=== PATIENT | female | born 1955 | race Caucasian/White ===

== ENCOUNTER 2016-10-25 09:27 | Emergency (ER) | payer BC ==
--- NOTE | 2016-10-25 09:51 | ER Document Report ---
ED General - General Stated Complaint: KNEE PAIN,FALL Time Seen by Provider: 10/25/16 09:33 Mode of Arrival: Medic Information source: Patient Notes: 61-year-old female presents with fall with complaints of right knee pain. Deformity noted by EMS Given fentanyl just prior to arrival - HPI Onset: Just prior to arrival Onset/Duration: Sudden Quality of pain: Sharp Severity: Mild Pain Level: 1 Associated symptoms: Body/muscle aches Exacerbated by: Denies Relieved by: Denies Similar symptoms previously: No Recently seen / treated by doctor: No - Related Data Allergies/Adverse Reactions: Penicillins Allergy (Verified 10/25/16 10:08) prochlorperazine [From Compazine] Allergy (Verified 10/25/16 10:08) Past Medical History - Social History Smoking Status: Never Smoker Cigarette use (# per day): No Chew tobacco use (# tins/day): No Smoking Education Provided: No Family History: Reviewed & Not Pertinent Review of Systems - Review of Systems Notes: REVIEW OF SYSTEMS: CONSTITUTIONAL : Denies fever, chills, or sweats. Denies recent illness. EENT: Denies eye, ear, throat, or mouth pain or symptoms. Denies nasal or sinus congestion or discharge. Denies throat, tongue, or mouth swelling or difficulty swallowing. CARDIOVASCULAR: Denies RESPIRATORY: Denies cough, cold, or chest congestion. Denies shortness of breath, difficulty breathing, or wheezing. GASTROINTESTINAL: Denies abdominal pain or distention. Denies nausea, vomiting , or diarrhea. Denies blood in vomitus, stools, or per rectum. Denies black, tarry stools. Denies constipation. GENITOURINARY: Denies difficulty urinating, painful urination, burning, frequency, blood in urine, or discharge. FEMALE GENITOURINARY: Denies vaginal bleeding, heavy or abnormal periods, irregular periods. Denies vaginal discharge or odor. MUSCULOSKELETAL: Admits to right knee pain SKIN: Denies rash, lesions or sores. HEMATOLOGIC : Denies easy bruising or bleeding. LYMPHATIC: Denies swollen, enlarged glands. NEUROLOGICAL: Denies confusion or altered mental status. Denies passing out or loss of consciousness. Denies dizziness or lightheadedness. Denies headache. Denies weakness or paralysis or loss of use of either side. Denies problems with gait or speech. Denies sensory loss, numbness, or tingling. Denies seizures. PSYCHIATRIC: Denies anxiety or stress. Denies depression, suicidal ideation, or homicidal ideation. ALL OTHER SYSTEMS REVIEWED AND NEGATIVE. PHYSICAL EXAMINATION: GENERAL: Well-appearing, well-nourished and in no acute distress. HEAD: Atraumatic, normocephalic. EYES: Pupils equal round and reactive to light, extraocular movements intact, conjunctiva are normal. ENT: Nares patent, oropharynx clear without exudates. Moist mucous membranes. NECK: Normal range of motion, supple without lymphadenopathy LUNGS: Breath sounds clear to auscultation bilaterally and equal. No wheezes rales or rhonchi. HEART: Regular rate and rhythm without murmurs ABDOMEN: Soft, nontender, nondistended abdomen. No guarding, no rebound. No masses appreciated. Female : deferred Musculoskeletal: Better range of motion of the right knee, pulses are intact at the popliteal, DP PT NEUROLOGICAL: Cranial nerves grossly intact. Normal speech, normal gait. Normal sensory, motor exams PSYCH: Normal mood, normal affect. SKIN: Warm, Dry, normal turgor, no rashes or lesions noted. Dictation was performed using [employer] voice recognition software Physical Exam - Vital signs Vitals: Temp Pulse BP Pulse Ox 97.8 F 56 L 148/81 H 93 10/25/16 09:35 10/25/16 09:35 10/25/16 09:35 10/25/16 09:35 Course - Re-evaluation Re-evalutation: 10/25/16 09:50 Presents with right knee pain secondary to mechanical fall x-ray pending 10/25/16 10:38 I spoke with patient's orthopedic physician Dr. Bingham, he requests patient be placed in a knee immobilizer and followed up in office 10/25/16 10:50 After performing a Medical Screening Examination, I estimate there is LOW risk for INTRACRANIAL HEMORRHAGE, UNSTABLE SPINE FRACTURE, CENTRAL CORD SYNDROME, CAUDA EQUINA, THORACIC AORTIC DISSECTION, PNEUMOTHORAX, PERFORATED BOWEL, RUPTURED ABDOMINAL AORTIC ANEURYSM, ACUTE TENDON RUPTURE, COMPARTMENT SYNDROME, or OPEN FRACTURE, thus I consider the discharge disposition reasonable. Also, there is no evidence or peritonitis, sepsis, or toxicity. I have reevaluated this patient multiple times and no significant life threatening changes are noted. The patient and I have discussed the diagnosis and risks, and we agree with discharging home to follow-up with their primary doctor with the understanding that symptoms and presentations can change. We also discussed returning to the Emergency Department immediately if new or worsening symptoms occur. We have discussed the symptoms which are most concerning (e.g., bloody stool, fever, changing or worsening pain, vomiting) that necessitate immediate return. - Vital Signs Vital signs: Temp Pulse Resp BP Pulse Ox 97.8 F 56 L 148/81 H 93 10/25/16 09:35 10/25/16 09:35 10/25/16 09:35 10/25/16 09:35 - Diagnostic Test Radiology reviewed: Image reviewed, Reports reviewed Discharge - Discharge Clinical Impression: Knee fracture Closed fibular fracture Qualifiers: Encounter type: initial encounter Fibula location: proximal Fracture morphology : unspecified fracture morphology Laterality: right Qualified Code(s): S82.831A - Other fracture of upper and lower end of right fibula, initial encounter for closed fracture Tibial plateau fracture Qualifiers: Encounter type: initial encounter Fracture type: closed Laterality: right Qualified Code(s): S82.141A - Displaced bicondylar fracture of right tibia, initial encounter for closed fracture Condition: Stable Disposition: HOME, SELF-CARE Instructions: Knee Immobilizing Splint ([facility]) Prescriptions: Hydrocodone/Acetaminophen [[place] 5-325 mg Tablet] 1 tab PO Q6 #30 tablet Ondansetron HCl [Zofran 4 mg Tablet] 1 - 2 tab PO Q4H PRN #20 tablet PRN Reason: Referrals: TONI BINGHAM MD [ACTIVE STAFF] - Follow up tomorrow
--- NOTE | 2016-10-25 10:26 | RADIOLOGY REPORT (SQ) ---
EXAM DESCRIPTION: KNEE RIGHT 4 VIEWS COMPLETED DATE/TIME: 10/25/2016 9:55 am REASON FOR STUDY: injury COMPARISON: None. NUMBER OF VIEWS: Four views. TECHNIQUE: AP, lateral, and both oblique radiographic images acquired of the right knee. LIMITATIONS: None. FINDINGS: MINERALIZATION: Normal. BONES: There appears to be a mildly displaced fracture through the posterior aspect of the tibial reuben teau with extension into the distal joint. With also comminuted fracture involving the proximal port ion of the fibula through the head. Minimal displacement of the fracture fragments in relation to ea ch other. JOINT: Small lipohaemarthrosis. SOFT TISSUES: There is soft tissue swelling about the knee. No radiopaque foreign body. OTHER: No other significant finding. IMPRESSION: Comminuted fractures involving the right fibular head and the posterior aspect of the ti bial plateau with extension into the joint space are noted. There appears to be a small lipohaemarth rosis. Soft tissue swelling about the knee. TECHNICAL DOCUMENTATION: JOB ID: [id number] [employer]- All Rights Reserved
[2016-10-25] MEDS ORDERED: HYDROMORPHONE HCL INJ/PF 2 MG/ML AMPULE IM ONE (10:52)
[2016-10-25] MEDS ORDERED: ONDANSETRON HCL 8 MG TABLET PO ONE (10:52)
[2016-10-25 11:32] VITALS: BP 141/74
== END 2016-10-25 11:50 | disposition home or self-care (01) ==
LOC: ER 09:27
DX: S82.141A Displaced bicondylar fracture of right tibia, initial encounter for closed fracture (principal); S82.831A Other fracture of upper and lower end of right fibula, initial encounter for closed fracture; W10.9XXA Fall (on) (from) unspecified stairs and steps, initial encounter; M25.561 Pain in right knee; Z88.0 Allergy status to penicillin; Z88.8 Allergy status to other drugs, medicaments and biological substances
CPT/HCPCS: 99283; 96372; 73564; L1830; J1170; S0119

== ENCOUNTER 2016-10-28 16:25 | Emergency (ER) | payer BC ==
--- NOTE | 2016-10-28 16:44 | ER Document Report ---
ED Extremity Problem, Lower - General Chief Complaint: Leg Pain Stated Complaint: LEG RECHECK Time Seen by Provider: 10/28/16 16:31 Notes: Patient is a 61-year-old female, past medical history right proximal tib-fib fracture 3 days ago after a fall, presents with worsening swelling of her right calf and mccray since this morning. She is wearing a knee immobilizer. She is concerned that she is having a blood clot. She is scheduled for surgery by Dr. Bingham and 5 days. She denies numbness, tingling, new injury, open wounds or left leg swelling. TRAVEL OUTSIDE OF THE [place] IN LAST 30 DAYS: No - Related Data Allergies/Adverse Reactions: Penicillins Allergy (Verified 10/28/16 16:30) prochlorperazine [From Compazine] Allergy (Verified 10/28/16 16:30) Past Medical History - General Information source: Patient - Social History Smoking Status: Never Smoker Family History: Reviewed & Not Pertinent Patient has suicidal ideation: No Patient has homicidal ideation: No - Past Medical History Cardiac Medical History: Reports: Hx Hypertension Neurological Medical History: Reports: Hx Seizures Renal/ Medical History: Denies: Hx Peritoneal Dialysis Past Surgical History: Reports: Hx Orthopedic Surgery - Left leg, Hx Tubal Ligation Review of Systems - Review of Systems Notes: REVIEW OF SYSTEMS: CONSTITUTIONAL: -fevers, -chills EENT: -eye pain, -difficulty swallowing, -nasal congestion CARDIOVASCULAR:-chest pain, -syncope. RESPIRATORY: -cough, -SOB GASTROINTESTINAL: -abdominal pain, - nausea, -vomiting, -diarrhea GENITOURINARY: -dysuria, -hematuria MUSCULOSKELETAL: +right calf and mccray swelling, -back pain, -neck pain SKIN: -rash or skin lesions. HEMATOLOGIC: -easy bruising or bleeding. LYMPHATIC: -swollen, enlarged glands. NEUROLOGICAL: -altered mental status or loss of consciousness, -headache, - neurologic symptoms PSYCHIATRIC: -anxiety, -depression. ALL OTHER SYSTEMS REVIEWED AND NEGATIVE. Physical Exam - Vital signs Vitals: Temp Pulse Resp BP Pulse Ox 98.7 F 76 18 166/99 H 96 10/28/16 16:29 10/28/16 16:29 10/28/16 16:29 10/28/16 16:29 10/28/16 16:29 - Notes Notes: PHYSICAL EXAMINATION: GENERAL: Well-appearing, well-nourished and in no acute distress. HEAD: Atraumatic, normocephalic. EYES: Pupils equal round and reactive to light, extraocular movements intact, sclera anicteric, conjunctiva are normal. ENT: nares patent, oropharynx clear without exudates. Moist mucous membranes. NECK: Normal range of motion, supple without lymphadenopathy LUNGS: Breath sounds clear to auscultation bilaterally and equal. No wheezes rales or rhonchi. HEART: Regular rate and rhythm without murmurs ABDOMEN: Soft, nontender, normoactive bowel sounds. No guarding, no rebound. No masses appreciated. EXTREMITIES: Swelling and tenderness of right anterior mccray and calf, strong distal pulses, brisk capillary refill, N/V intact distally NEUROLOGICAL: Cranial nerves grossly intact. Normal speech, normal gait. Normal sensory and motor exams. PSYCH: Normal mood, normal affect. SKIN: Warm, Dry, normal turgor, no rashes or lesions noted. Course - Re-evaluation Re-evalutation: Symptoms are not consistent with compartment syndrome at this time. Ultrasound of her right lower extremity does not reveal any DVTs. Patient scheduled for surgery in [address] Bingham. Instructed her to continue to wear knee immobilizer and take Motrin and oxycodone as needed. Given strict return precautions and she understands. - Vital Signs Vital signs: Temp Pulse Resp BP Pulse Ox 98.7 F 76 18 166/99 H 96 10/28/16 16:29 10/28/16 16:29 10/28/16 16:29 10/28/16 16:29 10/28/16 16:29 - Diagnostic Test Radiology reviewed: Image reviewed, Reports reviewed Radiology results interpreted by me: DVT US: No DVT or SVT in RLE. Discharge - Discharge Clinical Impression: Traumatic ecchymosis of right lower leg Qualifiers: Encounter type: initial encounter Qualified Code(s): S80.11XA - Contusion of right lower leg, initial encounter Condition: Stable Disposition: HOME, SELF-CARE Additional Instructions: There is no evidence of a blood clot in your leg at this time. Follow-up with your surgeon. Take anti-inflammatories and oxycodone for severe pain. Referrals: KAREN,NO [Primary Care Provider] - Follow up as needed TONI BINGHAM MD [ACTIVE STAFF] - Follow up as needed
--- NOTE | 2016-10-28 19:19 | RADIOLOGY REPORT (SQ) ---
EXAM DESCRIPTION: VENOUS UNILATERAL LOWER COMPLETED DATE/TIME: 10/28/2016 6:54 pm REASON FOR STUDY: worsening RLE swelling s/p fx COMPARISON: None. TECHNIQUE: Dynamic and static gibson scale and color images acquired of the right leg venous system. S elected spectral images acquired with additional compression and augmentation maneuvers. The contrala teral common femoral vein and saphenofemoral junction were also imaged. Images stored on PACS. LIMITATIONS: None. FINDINGS: COMMON FEMORAL: Normal phasicity, compression and augmentation. No visualized echogenic ma terial on gibson scale. No defects on color images. FEMORAL: Normal compression and augmentation. No visualized echogenic material on gibson scale. No defe cts on color images. POPLITEAL: Normal compression, augmentation. No visualized echogenic material on gibson scale. No defec ts on color images. CALF VESSELS: Normal compression, augmentation. No visualized echogenic material on gibson scale. No de fects on color images. GSV and SSV: Normal compression, augmentation. No visualized echogenic material on gibson scale. No def ects on color images. ANY DEEP VENOUS INSUFFICIENCY: Not evaluated. ANY EVIDENCE OF POPLITEAL CYST: No. OTHER: No other significant finding. CONTRALATERAL COMMON FEMORAL VEIN AND SAPHENOFEMORAL JUNCTION: Normal phasicity, compression and augmentation. No visualized echogenic material on gibson scale. No de fects on color images. IMPRESSION: NO EVIDENCE DVT OR SVT IN THE RIGHT LEG. TECHNICAL DOCUMENTATION: JOB ID: [id number] [employer]- All Rights Reserved
[2016-10-28 19:44] VITALS: BP 146/75
== END 2016-10-28 19:45 | disposition home or self-care (01) ==
LOC: ER 16:25
DX: S82.201A Unspecified fracture of shaft of right tibia, initial encounter for closed fracture (principal); S82.401A Unspecified fracture of shaft of right fibula, initial encounter for closed fracture; W19.XXXA Unspecified fall, initial encounter; I10 Essential (primary) hypertension; Z88.0 Allergy status to penicillin; Z88.8 Allergy status to other drugs, medicaments and biological substances
CPT/HCPCS: 93971; 99283

== ENCOUNTER 2016-11-02 05:25 | Day surgery (SDC) | payer BC ==
--- NOTE | 2016-10-31 13:25 | RADIOLOGY REPORT (SQ) ---
EXAM DESCRIPTION: CHEST PA/LATERAL COMPLETED DATE/TIME: 10/31/2016 1:18 pm REASON FOR STUDY: PRE-OP COMPARISON: None. EXAM PARAMETERS: NUMBER OF VIEWS: two views TECHNIQUE: Digital Frontal and Lateral radiographic views of the chest acquired. RADIATION DOSE: NA LIMITATIONS: none FINDINGS: LUNGS AND PLEURA: No opacities, masses or pneumothorax. No pleural effusion. MEDIASTINUM AND HILAR STRUCTURES: No masses or contour abnormalities. HEART AND VASCULAR STRUCTURES: Heart normal size. No evidence for failure. BONES: No acute findings. HARDWARE: Surgical clips at the GE junction. OTHER: No other significant finding. IMPRESSION: NO SIGNIFICANT RADIOGRAPHIC FINDING IN THE CHEST. TECHNICAL DOCUMENTATION: JOB ID: [id number] [employer]- All Rights Reserved
[2016-10-31 14:14] LABS: ABSOLUTE BASOPHILS # (AUTO) 0.1 10^3/uL (0.0-0.2); ABSOLUTE EOSINOPHILS # (AUTO) 0.3 10^3/uL (0.0-0.6); ABSOLUTE LYMPHOCYTES (AUTO) 2.8 10^3/uL (0.5-4.7); ABSOLUTE MONOCYTES (AUTO) 0.8 10^3/uL (0.1-1.4); ABSOLUTE NEUT (AUTO) 3.8 10^3/uL (1.7-8.2); BASOPHILS % (AUTO) 0.7 % (0-2); EOSINOPHILS % (AUTO) 3.5 % (0-6); HEMATOCRIT 40.3 % (36.0-47.0); HEMOGLOBIN 13.1 g/dL (12.0-15.5); LYMPHOCYTES % (AUTO) 36.3 % (13-45); MEAN CORPUSCULAR HEMOGLOBIN 29.9 pg (27.0-33.4); MEAN CORPUSCULAR HGB CONC 32.4 g/dL (32.0-36.0); MEAN CORPUSCULAR VOLUME 92 fl (80-97); MONOCYTES % (AUTO) 10.1 % (3-13); RED BLOOD COUNT 4.37 10^6/uL (3.72-5.28); RED CELL DISTRIBUTION WIDTH 13.2 % (11.5-14.0); SEGMENTED NEUTROPHILS % (AUTO) 49.4 % (42-78); WHITE BLOOD COUNT 7.7 10^3/uL (4.0-10.5)
[2016-10-31 14:33] LABS: ANION GAP 13 (5-19); BLOOD UREA NITROGEN 20 mg/dL (7-20); CALCIUM 9.3 mg/dL (8.4-10.2); CARBON DIOXIDE 25 mmol/L (22-30); CHLORIDE 104 mmol/L (98-107); CREATININE RESULT 0.72 mg/dL (0.52-1.25); GLUCOSE 143 mg/dL (75-110); POTASSIUM 4.2 mmol/L (3.6-5.0); SODIUM 141.9 mmol/L (137-145)
--- NOTE | 2016-10-31 20:32 | EKG REPORT ---
SEVERITY:- ABNORMAL ECG - SINUS RHYTHM PROBABLE LEFT VENTRICULAR HYPERTROPHY : Confirmed by: Douglas Rabago MD 31-Oct-2016 20:32:12
[~2016-11-02 05:25] MED LIST: CEFAZOLIN INJ 1 GM VIAL INJ PRN; CLINDAMYCIN 600 MG/D5W RTU 600 MG/50 ML RTUPB IV PRN; LACTATED RINGERS 1000 ML IV PRN; LIDOCAINE 0.5% INJ-PF (5 MG/ML) 50 ML SDV SUBCUT PRN
[2016-11-02 06:01] LABS: APPEARANCE,URINE CLEAR; BILIRUBIN,URINE NEGATIVE (NEGATIVE); GLUCOSE, URINE NEGATIVE (NEGATIVE); KETONES,URINE NEGATIVE (NEGATIVE); LEUKOCYTE ESTERASE,URINE NEGATIVE (NEGATIVE); NITRITE,URINE NEGATIVE (NEGATIVE); PROTEIN,URINE NEGATIVE (NEGATIVE); URINE SPECIFIC GRAVITY 1.029; UROBILINOGEN,URINE NEGATIVE mg/dL (<2.0)
[2016-11-02] MEDS ORDERED: FENTANYL CITRATE INJ/PF 250 MCG/5 ML AMPULE ONE (06:31)
[2016-11-02] MEDS ORDERED: FENTANYL CITRATE INJ/PF 100 MCG/2 ML AMPUL ONE ×2 (06:32→09:04)
[2016-11-02] MEDS ORDERED: DEXMEDETOMIDINE INJ 80 MCG/20 ML VIAL IV ONE (06:32)
[2016-11-02] MEDS ORDERED: MIDAZOLAM 2 MG/2 ML INJ ONE (06:32)
[2016-11-02] MEDS ORDERED: PROPOFOL INJ 200 MG/20 ML VIAL IV ONE (06:32)
[2016-11-02] MEDS ORDERED: EPHEDRINE SULFATE INJ 50 MG/1 ML AMPULE ONE (06:32)
[2016-11-02] MEDS ORDERED: ACETAMINOPHEN 100 ML IV ONE (06:32)
[2016-11-02] MEDS ORDERED: MORPHINE SULFATE 10 MG/ML INJ ONE (06:33)
[2016-11-02] MEDS ORDERED: SCOPOLAMINE HYDROBROMIDE 1.5 MG PATCH.TD72 ONE (06:53)
[2016-11-02] MEDS ORDERED: DIPHENHYDRAMINE HCL 50 MG/ML VIAL ONE (06:57)
[2016-11-02] MEDS ORDERED: PROMETHAZINE HCL INJ 25 MG/1 ML VIAL IV PRN ×2 (07:43)
[2016-11-02] MEDS ORDERED: MEPERIDINE HCL/PF INJ 25 MG/1 ML DISP.SYRIN IV PRN (07:43)
[2016-11-02] MEDS ORDERED: MORPHINE SULFATE 10 MG/ML INJ IV PRN (07:43)
[2016-11-02] MEDS ORDERED: DIPHENHYDRAMINE HCL 50 MG/ML VIAL IV PRN (07:43)
[2016-11-02] MEDS ORDERED: OXYCODONE-ACETAMINOPHEN 5-325 MG TABLET PO PRN ×2 (07:43)
[2016-11-02] MEDS ORDERED: FENTANYL CITRATE INJ/PF 100 MCG/2 ML AMPUL IV PRN ×3 (07:43)
[2016-11-02] MEDS ORDERED: BUPIVACAINE HCL 0.5%-EPI 1:200000 INJ/PF 30 ML VIAL ONE (08:03)
--- NOTE | 2016-11-02 08:21 | Operative Report ---
Operative Report DATE OF SURGERY: 11/02/16 PREOPERATIVE DIAGNOSIS: Right lateral tibial plateau fracture OPERATION: Open reduction internal fixation right lateral tibial plateau fracture SURGEON: TONI BINGHAM ANESTHESIA: GA ESTIMATED BLOOD LOSS: 50 PROCEDURE: Patient supine on the operative table the right lower extremities prepped and draped in a sterile fashion. Limb was elevated for exsanguination. Tourniquet inflated 280 mmHg. A curvilinear incision was made beginning at the joint line posteriorly and extending anteriorly and distally along the tibial crest. Sharp dissection was carried incision down to the muscle fascia. The muscle fascia divided and the muscle elevated off the lateral tibial face. A elevator was inserted through the anterior cortical break and used to elevate the posterior aspect of the articular surface of the lateral compartment. Then a pelvic reduction forceps was placed across the proximal tibia and used to compress the fracture site. This elevates the lateral cortical rim to the appropriate height compared to the medial compartment. A 5 hole Regina titanium proximal tibial plate is applied to lateral surface and secured with 3 screws proximally and 3 screws distally. The fracture reduction in the hardware placement nursing access using fluoroscopy in 2 planes and felt to be adequate. At this point the tourniquet was deflated. Hemostasis obtained with electrocautery. The wound was irrigated and closed using of the Vicryl followed by najma. A sterile compressive dressing was applied and the patient 's return to the PACU in satisfactory condition.
[2016-11-02] MEDS ORDERED: RINGERS SOLUTION,LACTATED 1,000 ML IV PRN (08:47)
[2016-11-02] MEDS ORDERED: ONDANSETRON HCL INJ/PF 4 MG/2 ML SDV IV PRN (08:50)
--- NOTE | 2016-11-02 09:13 | RADIOLOGY REPORT (SQ) ---
EXAM DESCRIPTION: TIBIA FIBULA RIGHT; NO CHG FLUORO COMPLETED DATE/TIME: 11/02/2016 8:25 am REASON FOR STUDY: TIB PLATU FX S82.101A UNSP FRACTURE OF UPPER END OF RIGHT TIBIA, INIT FOR COMPARISON: 10/25/2016 right knee four views FLUOROSCOPY TIME: 0.2 minutes 2 digital C-arm images saved to PACS. TECHNIQUE: Intra-operative images acquired during surgical procedure to evaluate progress. NUMBER OF IMAGES: 2 digital C-arm images LIMITATIONS: None. FINDINGS: Post ORIF right tibial plateau fracture with fixation plate and multiple screws. Good ali gnment. Please see the operative report for further details IMPRESSION: Intra procedural imaging and fluoro COMMENT: Quality ID [id number]: Final reports for procedures using fluoroscopy that document radiation exp osure indices, or exposure time and number of fluorographic images (if radiation exposure indices are not available) Please consult full operative report of the attending physician for description of the procedure. TECHNICAL DOCUMENTATION: JOB ID: [id number] [employer]- All Rights Reserved
[2016-11-02] MEDS ORDERED: ONDANSETRON 4 MG TAB.RAPDIS PO PRN (10:36)
[2016-11-02] MEDS: MORPHINE SULFATE 10 MG/ML INJ IV PRN ×2 (10:52→18:22)
[2016-11-02] MEDS ORDERED: KETOROLAC TROMETHAMINE 60 MG/2 ML SDV ONE (11:05)
[2016-11-02] MEDS ORDERED: DEXAMETHASONE SOD PHOSPHATE INJ 4 MG/1 ML VIAL ONE (11:05)
[2016-11-02] MEDS ORDERED: NEOSTIGMINE METHYLSULFATE 10 MG/10 ML VIAL ONE (11:05)
[2016-11-02] MEDS ORDERED: ROCURONIUM BROMIDE INJ 50 MG/5 ML VIAL IV ONE (11:05)
[2016-11-02] MEDS ORDERED: ONDANSETRON HCL INJ/PF 4 MG/2 ML SDV ONE (11:05)
[2016-11-02] MEDS ORDERED: GLYCOPYRROLATE INJ 0.4 MG/2 ML VIAL ONE (11:05)
[2016-11-02] MEDS ORDERED: SUCCINYLCHOLINE CHLORIDE INJ 200 MG/10 ML VIAL ONE (11:05)
[2016-11-02] MEDS ORDERED: LIDOCAINE 2% INJ-PF (20 MG/ML) 10 ML AMPUL ONE (11:05)
[2016-11-02] MEDS ORDERED: METOCLOPRAMIDE HCL INJ/PF 10 MG/2 ML SDV ONE (11:05)
[2016-11-02] MEDS ORDERED: CLINDAMYCIN 600 MG/D5W RTU 600 MG/50 ML RTUPB IV ONE (12:00)
[2016-11-02] MEDS: HYDROCODONE/ACETAMINOPHEN 5-325 MG TABLET PO SCH ×2 (13:06→14:00)
[2016-11-02] MEDS: METOPROLOL TARTRATE 50 MG TABLET PO SCH (17:51)
[2016-11-02] MEDS: HYDROCODONE/ACETAMINOPHEN 5-325 MG TABLET PO PRN (21:06)
[2016-11-02] MEDS ORDERED: LEVETIRACETAM 500 MG TABLET PO SCH (22:00)
[2016-11-03] MEDS: OXYCODONE HCL IR 5 MG TABLET PO PRN ×2 (01:41→09:45)
[2016-11-03] MEDS: HYDROCODONE/ACETAMINOPHEN 5-325 MG TABLET PO PRN (05:42)
[2016-11-03 08:36] VITALS: BP 126/61
[2016-11-03] MEDS: METOPROLOL TARTRATE 50 MG TABLET PO SCH (09:29)
[2016-11-03] MEDS ORDERED: MELOXICAM 7.5 MG TABLET PO SCH (10:00)
[2016-11-03] MEDS ORDERED: AMLODIPINE BESYLATE 5 MG TABLET PO SCH (10:00)
[2016-11-03] MEDS ORDERED: BENAZEPRIL HCL 10 MG TABLET PO SCH (10:00)
== END 2016-11-03 10:50 | disposition home or self-care (01) ==
LOC: OROUT 05:25 → EDSTATUS 07:30 → 4S 10:17 → OROUT 11-03 10:50
PROVIDERS: ATTEND Orthopaedic Surgery
PROC: 0QSH04Z Reposition Left Tibia with Internal Fixation Device, Open Approach (ICD-10-PCS; principal; 2016-11-02 07:15)
DX: S82.141A Displaced bicondylar fracture of right tibia, initial encounter for closed fracture (principal); W19.XXXA Unspecified fall, initial encounter; I10 Essential (primary) hypertension; G40.909 Epilepsy, unspecified, not intractable, without status epilepticus; E66.3 Overweight; Z88.0 Allergy status to penicillin; Z88.8 Allergy status to other drugs, medicaments and biological substances; Z79.1 Long term (current) use of non-steroidal anti-inflammatories (NSAID); Z68.31 Body mass index [BMI] 31.0-31.9, adult
CPT/HCPCS: 93005; 36415; 85025; 80048; 81001; 71020; 73590; 93010; 97530; 97116; 97163; 27536; C1713 ×3; J2250; J3490 ×4; J1100; J1200; J1885; J3010 ×2; J2765; J2270; J0330; J2405; J2704; J0131; 01392

== ENCOUNTER → 2017-02-01 | Outpatient (CLI) | payer BC ==
--- NOTE | 2017-02-01 09:43 | WOMENS IMAGING REPORT ---
EXAM DESCRIPTION: BONE DENSITY HIP/SPINE COMPLETED DATE/TIME: 02/01/2017 8:23 am REASON FOR STUDY: PAIN IN R LEG; M79.604 M79.604 PAIN IN RIGHT LEG COMPARISON: None. TECHNIQUE: Dual-Energy X-ray Absorptiometry (DEXA) of the AP Spine and Hip. LIMITATIONS: None. FINDINGS: LUMBAR SPINE: The bone mineral density (BMD) measured from L1-L4 in the AP projection correlates with a T-score of -2.2, which is osteopenic as defined by the World Health Organization. HIP: The bone mineral density (BMD) measured in the left femoral neck at the hip correlates with a T-score of -2.6, which is osteoporotic as defined by the World Health Organization. IMPRESSION: 1. LUMBAR SPINE: Osteopenic 2. HIP: Osteoporotic COMMENT: The World Health Organization defines low BMD as follows: T-score: Normal: Greater than -1.0 Osteopenia: Between -1.0 and -2.5 Osteoporosis: Less than -2.5 without fractures Established osteoporosis: Less than -2.5 with fractures In general, you may wish to consider: Diagnosis Treatment Follow-up DEXA Normal BMD Prevention 2-3 years Osteopenia Prevention/Therapy 1-2 years Osteoporosis Therapy Yearly TECHNICAL DOCUMENTATION: JOB ID: [id number] [employer]- All Rights Reserved
== END ==
LOC: WI 07:57
PROVIDERS: ATTEND Orthopaedic Surgery
DX: M79.604 Pain in right leg (principal); M81.0 Age-related osteoporosis without current pathological fracture
CPT/HCPCS: 77080

== ENCOUNTER → 2017-12-19 | Outpatient (CLI) | payer BC ==
[2017-12-19 12:33] LABS: ABSOLUTE EOSINOPHILS # (AUTO) 0.2 10^3/uL (0.0-0.6); ABSOLUTE LYMPHOCYTES (AUTO) 2.8 10^3/uL (0.5-4.7); ABSOLUTE MONOCYTES (AUTO) 0.6 10^3/uL (0.1-1.4); ABSOLUTE NEUT (AUTO) 3.7 10^3/uL (1.7-8.2); BASOPHILS % (AUTO) 0.6 % (0-2); EOSINOPHILS % (AUTO) 2.8 % (0-6); HEMATOCRIT 42.5 % (36.0-47.0); HEMOGLOBIN 14.8 g/dL (12.0-15.5); LYMPHOCYTES % (AUTO) 38.3 % (13-45); MEAN CORPUSCULAR HEMOGLOBIN 31.4 pg (27.0-33.4); MEAN CORPUSCULAR HGB CONC 34.7 g/dL (32.0-36.0); MEAN CORPUSCULAR VOLUME 90 fl (80-97); MONOCYTES % (AUTO) 8.2 % (3-13); PLATELET COUNT 246 10^3/uL (150-450); RED BLOOD COUNT 4.71 10^6/uL (3.72-5.28); SEGMENTED NEUTROPHILS % (AUTO) 50.1 % (42-78); TOTAL CELLS COUNTED % (AUTO) 100 %; WHITE BLOOD COUNT 7.4 10^3/uL (4.0-10.5)
[2017-12-19 12:50] LABS: ALANINE AMINOTRANSFERASE 92 U/L (9-52); ALBUMIN 4.3 g/dL (3.5-5.0); ALKALINE PHOSPHATASE 90 U/L (38-126); ANION GAP 13 (5-19); ASPARTATE AMINO TRANSFERASE 57 U/L (14-36); BILIRUBIN,DIRECT 0.3 mg/dL (0.0-0.4); BILIRUBIN,TOTAL 0.5 mg/dL (0.2-1.3); BLOOD UREA NITROGEN 19 mg/dL (7-20); CARBON DIOXIDE 24 mmol/L (22-30); CHLORIDE 109 mmol/L (98-107); CHOLESTEROL 234.27 mg/dL (0-200); GLUCOSE 149 mg/dL (75-110); POTASSIUM 4.4 mmol/L (3.6-5.0); SODIUM 145.9 mmol/L (137-145); TOTAL PROTEIN 7.7 g/dL (6.3-8.2); TRIGLYCERIDES 215 mg/dL (<150)
[2017-12-19 13:03] LABS: DIRECT LDL 134 mg/dL (<100)
== END ==
LOC: LAB 11:36
PROVIDERS: ATTEND Internal Medicine
DX: I10 Essential (primary) hypertension (principal)
CPT/HCPCS: 36415; 80053; 80061; 82652; 83036; 84443; 85025

== ENCOUNTER → 2017-12-19 | Outpatient (CLI) | payer BC ==
--- NOTE | 2017-12-19 19:36 | XCELERA REPORT ---
[address] [address] Transthoracic Echocardiogram Report Name: PLACIDO MENDIETA Age: 62 yrs Gender: Female : 1955 Patient Status: Outpatient Patient Location: RAD Study Date: 12/19/2017 10:58 AM Height: 63 in Weight: 179 lb BSA: 1.8 m2 Procedure: A complete two-dimensional transthoracic echocardiogram was performed (2D, M-mode, spectral and color flow Doppler). The study was technically difficult with many images being suboptimal in quality. Reason For Study: SYSTOLIC MURMUR Ordering Physician: DORA DARBY Performed By: Lyudmila Lee Interpretation Summary The study was technically difficult with many images being suboptimal in quality. The left ventricular ejection fraction is normal. There is borderline concentric left ventricular hypertrophy. The left ventricle is grossly normal size. Doppler measurements suggest pseudonormalized left ventricular relaxation, which is associated with grade II/IV or mild to moderate diastolic dysfunction Regional wall motion abnormalities cannot be excluded due to limited visualization. The right ventricle is borderline dilated. The right ventricular systolic function is normal. Borderline right atrial enlargement. The left atrial size is normal. There is a trace amount of mitral regurgitation There is no mitral valve stenosis. There is no aortic valve stenosis No aortic regurgitation is present. There is a trace or physiologic amount of tricuspid regurgitation There is no tricuspid stenosis. The aortic root is not well visualized but is probably normal size. The inferior vena cava was not well visualized There is no pericardial effusion. MMode/2D Measurements & Calculations RVDd: 3.0 cm LVIDd: 6.3 cm FS: 36.8 % Ao root diam: 2.8 cm IVSd: 0.79 cm LVIDs: 4.0 cm EDV(Teich): 202.3 ml Ao root area: 6.1 cm2 LVPWd: 0.84 cm ESV(Teich): 69.7 ml EF(Teich): 65.6 % Doppler Measurements & Calculations MV E max reggie: MV dec slope: Ao V2 max: LV V1 max P.0 cm/sec 228.1 cm/sec2 177.0 cm/sec 6.2 mmHg MV A max reggie: MV dec time: 0.26 secAo max PG: LV V1 max: 94.9 cm/sec 12.5 mmHg 124.7 cm/sec MV E/A: 0.62 PA V2 max: TR max reggie: 111.7 cm/sec 136.6 cm/sec PA max P.0 mmHg TR max P.5 mmHg Left Ventricle The left ventricle is grossly normal size. There is borderline concentric left ventricular hypertrophy. The left ventricular ejection fraction is normal. Doppler measurements suggest pseudonormalized left ventricular relaxation, which is associated with grade II/IV or mild to moderate diastolic dysfunction. Regional wall motion abnormalities cannot be excluded due to limited visualization. Right Ventricle The right ventricle is borderline dilated. The right ventricular systolic function is normal. Atria Borderline right atrial enlargement. The left atrial size is normal. Interarterial septum not well visualized and not well dopplered. Cannot comment on ASD/PFO presence. Mitral Valve The mitral valve is grossly normal. There is no mitral valve stenosis. There is a trace amount of mitral regurgitation. Aortic Valve The aortic valve opens well. There is no aortic valve stenosis. No aortic regurgitation is present. Tricuspid Valve The tricuspid valve is not well visualized secondary to technical limitations. There is no tricuspid stenosis. There is a trace or physiologic amount of tricuspid regurgitation. Pulmonic Valve The pulmonic valve is not well visualized. Great Vessels The aortic root is not well visualized but is probably normal size. The inferior vena cava was not well visualized. Effusions There is no pericardial effusion. : DORA DARBY > Guera Montiel
== END ==
LOC: RAD 10:47
PROVIDERS: ATTEND Internal Medicine
DX: R01.1 Cardiac murmur, unspecified (principal)
CPT/HCPCS: 93306

== ENCOUNTER 2020-05-11 11:50 | Inpatient (IN) | payer BC, MEDICARE ==
--- NOTE | 2020-05-11 12:14 | ER Document Report ---
ED Medical Screen (RME) - General Stated Complaint: LEFT SIDE WEAKNESS Time Seen by Provider: 05/11/20 12:05 Primary Care Provider: HAMLET LANG MD [Primary Care Provider] - Follow up as needed Mode of Arrival: Wheelchair Information source: Patient Notes: Patient is a 64-year-old female presenting to the emergency department with concerns for possible stroke. Patient reports approximately 48 hours ago while she was at work she started having weakness in her left upper extremity. She states this progressively got worse and she ended up having weakness in her left lower extremity. She states the weakness has continued. She denies any slurred speech, difficulty swallowing. She denies any visual changes. No history of strokes. She does have a history of hypertension. Patient has slight weakness to the left upper extremity. Slight facial asymmetry noted. No other focal neurological deficits during my limited exam in triage. Patient taken straight to CT. I have greeted and performed a rapid initial assessment of this patient. A comprehensive ED assessment and evaluation of the patient, analysis of test results and completion of the medical decision making process will be conducted by additional ED providers. I have specifically instructed the patient or family members with the patient to immediately return to any nursing staff should anything change in the patient's condition or with their chief complaint. TRAVEL OUTSIDE OF THE [place] IN LAST 30 DAYS: No - Related Data Allergies/Adverse Reactions: Penicillins Allergy (Verified 10/31/16 11:32) prochlorperazine [From Compazine] Allergy (Verified 10/31/16 11:32) Past Medical History - Past Medical History Cardiac Medical History: Reports: Hx Hypertension Denies: Hx Atrial Fibrillation, Hx Congestive Heart Failure, Hx Coronary Artery Disease, Hx Heart Attack, Hx Hypercholesterolemia, Hx Peripheral Vascular Disease, Hx Heart Murmur Pulmonary Medical History: Denies: Hx Asthma, Hx Bronchitis, Hx COPD Neurological Medical History: Reports: Hx Seizures - OVER 5YRS AGO. Denies: Hx Cerebrovascular Accident Renal/ Medical History: Denies: Hx Peritoneal Dialysis GI Medical History: Reports: Hx Ulcer - WITH SURGERY. Denies: Hx Crohn's Disease, Hx Gastroesophageal Reflux Disease, Hx Hiatal Hernia, Hx Irritable Bowel, Hx Liver Failure, Hx Pancreatitis Musculoskeltal Medical History: Reports Hx Arthritis - HANDS, Denies Hx Fibromyalgia, Denies Hx Muscular Dystrophy Traumatic Medical History: Denies: Hx Fractures Past Surgical History: Reports: Hx Orthopedic Surgery - Left leg, Hx Tonsillectomy, Hx Tubal Ligation. Denies: Hx Appendectomy, Hx Bowel Surgery, Hx Section, Hx Cholecystectomy, Hx Colostomy, Hx Coronary Artery Bypass Graft, Hx Gastric Bypass Surgery, Hx Herniorrhaphy, Hx Hysterectomy, Hx Mastectomy, Hx Pacemaker - Immunizations Hx Diphtheria, Pertussis, Tetanus Vaccination: Yes Physical Exam - Vital signs Vitals: Temp Pulse Resp BP Pulse Ox 98.4 F 51 L 20 186/98 H 97 05/11/20 12:03 05/11/20 12:03 05/11/20 12:03 05/11/20 12:03 05/11/20 12:03 Course - Vital Signs Vital signs: Temp Pulse Resp BP Pulse Ox 98.4 F 51 L 20 186/98 H 97 05/11/20 12:03 05/11/20 12:03 05/11/20 12:03 05/11/20 12:03 05/11/20 12:03 Doctor's Discharge - Discharge Referrals: HAMLET LANG MD [Primary Care Provider] - Follow up as needed
--- NOTE | 2020-05-11 12:34 | RADIOLOGY REPORT (SQ) ---
EXAM DESCRIPTION: CT HEAD WITHOUT IMAGES COMPLETED DATE/TIME: 05/11/2020 12:20 pm REASON FOR STUDY: stroke alert COMPARISON: 2008 TECHNIQUE: Axial images acquired through the brain without intravenous contrast. Images reviewed wi th bone, brain and subdural windows. Additional sagittal and coronal reconstructions were generated. Images stored on PACS. All CT scanners at this facility use dose modulation, iterative reconstruction, and/or weight based d osing when appropriate to reduce radiation dose to as low as reasonably achievable (ALARA). [facility]: Dose Right [facility]: CareDose [facility]: Dose Right [facility]: Teradose 4D [facility]: Smart [employer] RADIATION DOSE: CT Rad equipment meets quality standard of care and radiation dose reduction techniq ues were employed. CTDIvol: 53.2 mGy. DLP: 991 mGy-cm. mGy. LIMITATIONS: None. FINDINGS: VENTRICLES: Normal size and contour. CEREBRUM: No masses. No hemorrhage. No midline shift. No evidence for acute infarction. Normal gra y/white matter differentiation. No areas of low density in the white matter. CEREBELLUM: No masses. No hemorrhage. No alteration of density. No evidence for acute infarction. EXTRAAXIAL SPACES: No fluid collections. No masses. ORBITS AND GLOBE: No intra- or extraconal masses. Normal contour of globe without masses. CALVARIUM: No fracture. PARANASAL SINUSES: No fluid or mucosal thickening. SOFT TISSUES: No mass or hematoma. OTHER: No other significant finding. IMPRESSION: NORMAL BRAIN CT WITHOUT CONTRAST. EVIDENCE OF ACUTE STROKE: NO. COMMENT: The findings were sent to the Radiology Results Communication Center at 12:27 on 05/11/2020 to be communicated to a licensed caregiver. Quality ID # 436: Final reports with documentation of one or more dose reduction techniques (e.g., Au tomated exposure control, adjustment of the mA and/or kV according to patient size, use of iterative reconstruction technique) TECHNICAL DOCUMENTATION: JOB ID: [id number] 2010 [employer]- All Rights Reserved Reading location - IP/workstation name: [email or web address]
--- NOTE | 2020-05-11 12:42 | RADIOLOGY REPORT (SQ) ---
EXAM DESCRIPTION: CHEST SINGLE VIEW IMAGES COMPLETED DATE/TIME: 05/11/2020 12:24 pm REASON FOR STUDY: stroke alert COMPARISON: 10/31/2016 EXAM PARAMETERS: NUMBER OF VIEWS: One view. TECHNIQUE: Single frontal radiographic view of the chest acquired. RADIATION DOSE: NA LIMITATIONS: None. FINDINGS: LUNGS AND PLEURA: No opacities, masses or pneumothorax. No pleural effusion. MEDIASTINUM AND HILAR STRUCTURES: No masses. Contour normal. HEART AND VASCULAR STRUCTURES: Heart normal in size. Normal vasculature. BONES: No acute findings. HARDWARE: None in the chest. OTHER: No other significant finding. IMPRESSION: NO ACUTE RADIOGRAPHIC FINDING IN THE CHEST. TECHNICAL DOCUMENTATION: JOB ID: [id number] 2010 [employer]- All Rights Reserved Reading location - IP/workstation name: [email or web address]
[2020-05-11 13:12] LABS: ABSOLUTE BASOPHILS # (AUTO) 0.1 10^3/uL (0.0-0.2); ABSOLUTE EOSINOPHILS # (AUTO) 0.1 10^3/uL (0.0-0.6); ABSOLUTE LYMPHOCYTES (AUTO) 2.2 10^3/uL (0.5-4.7); ABSOLUTE MONOCYTES (AUTO) 0.5 10^3/uL (0.1-1.4); ABSOLUTE NEUT (AUTO) 2.7 10^3/uL (1.7-8.2); BASOPHILS % (AUTO) 0.9 % (0-2); EOSINOPHILS % (AUTO) 2.1 % (0-6); HEMATOCRIT 40.8 % (36.0-47.0); HEMOGLOBIN 13.6 g/dL (12.0-15.5); LYMPHOCYTES % (AUTO) 39.7 % (13-45); MEAN CORPUSCULAR HEMOGLOBIN 30.3 pg (27.0-33.4); MEAN CORPUSCULAR HGB CONC 33.4 g/dL (32.0-36.0); MEAN CORPUSCULAR VOLUME 91 fl (80-97); MONOCYTES % (AUTO) 8.8 % (3-13); PLATELET COUNT 203 10^3/uL (150-450); RED BLOOD COUNT 4.49 10^6/uL (3.72-5.28); RED CELL DISTRIBUTION WIDTH 12.6 % (11.5-14.0); SEGMENTED NEUTROPHILS % (AUTO) 48.5 % (42-78); TOTAL CELLS COUNTED % (AUTO) 100 %; WHITE BLOOD COUNT 5.5 10^3/uL (4.0-10.5)
[2020-05-11 13:16] LABS: INTERNATIONAL RATION (INR) 0.93; PARTIAL THROMBOPLASTIN TIME 30.4 SEC (23.5-35.8); PROTHROMBIN TIME 12.7 SEC (11.4-15.4)
[2020-05-11 13:30] LABS: ALBUMIN 4.1 g/dL (3.5-5.0); ALKALINE PHOSPHATASE 74 U/L (38-126); ASPARTATE AMINO TRANSFERASE 40 U/L (14-36); BILIRUBIN,DIRECT 0.3 mg/dL (0.0-0.4); BILIRUBIN,TOTAL 0.5 mg/dL (0.2-1.3); BLOOD UREA NITROGEN 17 mg/dL (7-20); CALCIUM 9.1 mg/dL (8.4-10.2); CREATINE KINASE 72 U/L (30-135); GLUCOSE 157 mg/dL (75-110); POTASSIUM 4.6 mmol/L (3.6-5.0); TOTAL PROTEIN 7.2 g/dL (6.3-8.2)
[2020-05-11 13:35] LABS: CARBON DIOXIDE 28 mmol/L (22-30); CHLORIDE 106 mmol/L (98-107)
[2020-05-11 13:40] LABS: ANION GAP 4 (5-19)
[2020-05-11 13:44] LABS: TROPONIN I < 0.012 ng/mL
--- NOTE | 2020-05-11 14:09 | ER Document Report ---
ED Neuro Symptoms/Deficit - General Stated Complaint: LEFT SIDE WEAKNESS Time Seen by Provider: 05/11/20 12:05 Mode of Arrival: Wheelchair TRAVEL OUTSIDE OF THE [place] IN LAST 30 DAYS: No - HPI Notes: Patient is a 64-year-old female with a past medical history of seizures on Keppra, diabetes, high blood pressure who presents with left-sided weakness. Patient states she was at work on Saturday, 2 days ago, when she developed some numbness to her left arm. She also felt that her left arm was weak. When she tried to stand, she felt that her left leg was weak. Patient was afraid to go to the hospital due to Covid. Her symptoms persisted so she went to the PCP today and was sent directly here. Patient mentions she feels like she has a slight left facial droop. She still has slight residual weakness to her left arm and leg. She has no numbness. No chest pain or shortness of breath. Patient states that she is only had 2 seizures in her life and that is why she is on Keppra. She has never had a stroke before. Patient is a non-smoker. - Related Data Allergies/Adverse Reactions: Penicillins Allergy (Verified 05/11/20 14:32) prochlorperazine [From Compazine] Allergy (Verified 05/11/20 14:32) Past Medical History - General Information source: Patient - Social History Smoking Status: Never Smoker Lives with: Family Family History: Reviewed & Not Pertinent - Past Medical History Cardiac Medical History: Reports: Hx Hypertension Denies: Hx Atrial Fibrillation, Hx Congestive Heart Failure, Hx Coronary Artery Disease, Hx Heart Attack, Hx Hypercholesterolemia, Hx Peripheral Vascular Disease, Hx Heart Murmur Pulmonary Medical History: Denies: Hx Asthma, Hx Bronchitis, Hx COPD Neurological Medical History: Reports: Hx Seizures - OVER 5YRS AGO. Denies: Hx Cerebrovascular Accident Renal/ Medical History: Denies: Hx Peritoneal Dialysis GI Medical History: Reports: Hx Ulcer - WITH SURGERY. Denies: Hx Crohn's Disease, Hx Gastroesophageal Reflux Disease, Hx Hiatal Hernia, Hx Irritable Bowel, Hx Liver Failure, Hx Pancreatitis Musculoskeletal Medical History: Reports Hx Arthritis - HANDS, Denies Hx Fibromyalgia, Denies Hx Muscular Dystrophy Traumatic Medical History: Denies: Hx Fractures Past Surgical History: Reports: Hx Orthopedic Surgery - Left leg, Hx Tons illectomy, Hx Tubal Ligation. Denies: Hx Appendectomy, Hx Bowel Surgery, Hx Section, Hx Cholecystectomy, Hx Colostomy, Hx Coronary Artery Bypass Graft, Hx Gastric Bypass Surgery, Hx Herniorrhaphy, Hx Hysterectomy, Hx Mastectomy, Hx Pacemaker - Immunizations Hx Diphtheria, Pertussis, Tetanus Vaccination: Yes Review of Systems - Review of Systems Notes: CONSTITUTIONAL: No fever, fatigue or weight loss. SKIN: No rash. HENT: No congestion, ear pain, or sore throat. EYES: No recent vision problems or eye pain. ENDOCRINE: No thyroid problems. No polyuria or polydipsia. CARDIOVASCULAR: No chest pain or edema. RESPIRATORY: No cough, shortness of breath, congestion, or wheezing. GASTROINTESTINAL: No abdominal pain, nausea, vomiting, bloody stools or diarrhea. MUSCULOSKELETAL: No joint pain or swelling. LYMPHATIC: No swollen glands. NEUROLOGIC: No seizures. Positive for headache. Positive for left arm and leg weakness. Positive for left-sided facial droop. HEMATOLOGIC: No unusual bruising or bleeding. PSYCHIATRIC: No depression or anxiety. Physical Exam - Vital signs Vitals: Temp Pulse Resp BP Pulse Ox 98.4 F 51 L 20 186/98 H 97 05/11/20 12:03 05/11/20 12:03 05/11/20 12:03 05/11/20 12:03 05/11/20 12:03 - General General appearance: Appears well In distress: None Notes: VITAL SIGNS: Hypertensive. GENERAL: No acute distress, non-toxic appearance. Tearful. HEAD: Normal with no signs of head trauma. EYES: EOMI, conjunctiva normal, no discharge. EARS: Hearing grossly intact. NOSE: Normal. NECK: Normal range of motion, no tenderness, supple, no lymphadenopathy, No adenopathy, no JVD. CHEST: Clear breath sounds bilaterally. CARDIAC: Regular rate and rhythm. S1 and S2, without murmurs, gallops, or rubs. VASCULAR: No Edema. ABDOMEN: Normal and soft MUSCULOSKELETAL: Good range of motion of all major joints. Extremities without clubbing, cyanosis or edema. NEUROLOGICAL: Alert and oriented x 3. Mild left facial droop. No appreciable left arm or leg weakness. PSYCHIATRIC: Normal Affect, judgement and mood. SKIN: Normal appearance with no rashes or lesions. Course - Re-evaluation Re-evalutation: 05/11/20 14:08 Patient is not a TPA candidate as her symptoms began 2 days ago and she is outside the TPA window. She does have a yin in her right leg. This will need to be determined if it is MRI compatible. Patient will need to be admitted to the hospital service for further work-up. I have discussed with the hospitalist who is in agreement. MRI is ordered. Patient and family are agreeable to the plan. 05/11/20 14:43 - Vital Signs Vital signs: Temp Pulse Resp BP Pulse Ox 98.4 F 51 L 20 186/98 H 97 05/11/20 12:03 05/11/20 12:03 05/11/20 12:03 05/11/20 12:03 05/11/20 12:03 - Laboratory Results Result Diagrams: 05/11/20 12:58 05/11/20 12:58 Laboratory Results Interpreted: 05/11/20 12:58 Anion Gap 4 L Glucose 157 H AST 40 H ALT 43 H Critical Laboratory Results Reviewed: No Critical Results - Radiology Results Critical Radiology Results Reviewed: No Critical Results - EKG Interpretation by Me EKG shows normal: Sinus rhythm Rate: Bradycardia Rhythm: NSR When compared to previous EKG there are: No significant change Additional EKG results interpreted by me: 05/11/20 14:18 Sinus bradycardia at a rate of 46. QTc 431. No acute ST changes. EKG is similar to previous. ED NIH Stroke Scale - NIH Stroke Scale When completed:: Protocol *: 1. NIH scale should be completed with appropriate accompanying assessment tools. *: 2. The NIH should reflect what the patient is capable of doing and should not be coached by the clinician. 1a. Level of Consciousness: 0=Alert;keenly responsive -: 1=Drowsy -: 2=Obtunded -: 3=Coma/unresponsive or reflex to noxious stimuli. 1a. Responses: 0 1b. Orientation Questions: a. What month is it? -: b. How old are you? -: 0=Answers both questions correctly. -: 1=Answers one question correctly or patient is intubated or has orotracheal trauma. -: 2=Answers neither question correctly. 1b. Responses: 0 1c. Response to commands: a. Open and close eyes? -: b. Manager Knowledge and release hand? -: Credit is given despite weakness. Demonstration of task is permitted. Substitute command if hands cannot be used. -: 0=Performs both tasks correctly -: 1=Performs one task correctly -: 2=Performs neither task correctly 1c. Responses: 0 2. Gaze: Establish eye contact and instruct patient to "Follow my finger" -: 0=Normal -: 1=Partial gaze palsy. Gaze is abnormal in one or both eyes, but where forced deviation or total gaze paresis is not present. -: 2=Forced deviation or total gaze paresis. 2. Responses: 0 3. Visual Carter: Sees fingers in all four quadrants. -: 0=No visual loss. -: 1=Partial hemianopsia. -: 2=Complete hemianopsia. -: 3=Bilateral hemianopsia (including Cortical blindness) 3. Responses: 0 4. Facial Movement: Instruct patient to: -: a. Show me your teeth -: b. Raise your eyebrows -: c. Close your eyes -: d. Smile -: 0=Normal symmetrical movement -: 1=Minor paralysis (flattened nasolabial fold, asymmetry on smiling). -: 2=Partial paralysis (total or near total paralysis of lower face). -: 3=Complete paralysis of upper and lower face 4. Responses: 1 5. Motor functions (left arm): Alternate sides and extend each arm with palms down (90 degrees if sitting or 45 degrees for supine). -: 0=No drift;limb holds for full 10 seconds. -: 1=Drift; limb holds but drifts down before full 10 seconds, but does not hit bed. -: 2=Some effort against gravity; limb cannot get to or maintain position. -: 3=No effort against gravity; limb falls. -: 4=No movement. -: UN=Amputation, joint fusion, explain in comments. 5. Responses (left arm): 0 5. Motor Functions (right arm): Alternate sides and extend each arm with palms down (90 degrees if sitting or 45 degrees for supine). -: 0=No drift;limb holds for full 10 seconds. -: 1=Drift; limb holds but drifts down before full 10 seconds, but does not hit bed. -: 2=Some effort against gravity; limb cannot get to or maintain position. -: 3=No effort against gravity; limb falls. -: 4=No movement. -: UN=Amputation, joint fusion, explain in comments. 5. Responses (right arm): 0 6. Motor Functions (left leg): With patient lying supine, alternate sides and extend each leg (30 degrees always while supine). -: 0=No drift, leg holds position for full 5 seconds -: 1=Drift; leg falls before full 5 seconds but does not hit bed. -: 2=Some effort against gravity, leg falls to bed but some effort against gravity. -: 3=No effort against gravity, leg falls to bed immediately. -: 4=No movement. -: UN=Amputation, joint fusion; explain in comments. 6. Responses (left leg): 0 6. Motor Functions (right leg): With patient lying supine, alternate sides and extend each leg (30 degrees always while supine). -: 0=No drift, leg holds position for full 5 seconds -: 1=Drift; leg falls before full 5 seconds but does not hit bed. -: 2=Some effort against gravity, leg falls to bed but some effort against gravity. -: 3=No effort against gravity, leg falls to bed immediately. -: 4=No movement. -: UN=Amputation, joint fusion; explain in comments. 6. Responses (right leg): 0 7. Limb Ataxia: With eyes open instruct patient to: -: a. "Touch your finger to your nose". -: b. "Touch your heel to your mccray" -: 0=Absent -: 1=Present in one limb. -: 2=Present in two limbs. -: UN=Amputation or joint fusion; explain in comments. 7. Responses: 0 8. Sensory: Test sensation using pinprick or noxious stimuli. Test as many body parts as possible. -: 0=Normal;no sensory loss -: 1=Mile to moderate sensory loss (patient feels pin prick but is less sharp on affected side). -: 2=Severe or total sensory loss. 8. Responses: 0 9. Best Language: Instruct patient to: -: a. "Describe what you see in this picture." -: b. "Name the items in this picture." -: c. "Read these sentences." -: 0=No aphasia, normal -: 1=Mild to moderate aphasia. -: 2=Severe aphasia -: 3=Mute, global aphasia, no usable speech or auditory comprehension. 9. Responses: 0 10. Articulation, Dysarthia: Instruct patient to: -: "Read these words" or "Repeat these words" -: 0=Normal -: 1=Mild to moderate; patient may slur some words but can be understood without difficulty. -: 2=Severe; patients speech so slurred as to be unintelligible in the absence of dysphasia. -: UN=Intubated or other physical barrier, explain in comments. 10. Responses: 0 11. Extinction or inattention: 0=No abnormality -: 1= Visual, tactile, auditory, spatial, or personal inattention or extinction to bilateral simulation in one or the sensory modalities. -: 2=Profound arya-inattention or arya-inattention to more than one modality; does not recognize own hand. 11. Responses: 0 Total Score: 1 Discharge - Discharge Clinical Impression: Stroke-like symptoms Condition: Stable Disposition: ADMITTED INPATIENT Admitting Provider: Lavonne (Hospitalist) Unit Admitted: [facility]
[2020-05-11] MEDS ORDERED: ACETAMINOPHEN 325 MG TABLET PO ONE (14:17)
[2020-05-11] MEDS ORDERED: ASPIRIN 325 MG TABLET PO ONE (14:22)
[2020-05-11] MEDS ORDERED: ONDANSETRON HCL 4 MG PO PRN (16:43)
[2020-05-11] MEDS ORDERED: DEXTROSE 50%-WATER 25 GM/50 ML DISP.SYRIN IV PRN ×2 (16:46)
[2020-05-11] MEDS ORDERED: DEXTROSE 40% GEL 15 GM TUBE PO PRN ×2 (16:46)
[2020-05-11] MEDS ORDERED: GLUCAGON,HUMAN RECOMB 1 MG INJ IM PRN (16:46)
[2020-05-11] MEDS ORDERED: DOCUSATE SODIUM 100 MG CAPSULE PO PRN (16:47)
[2020-05-11] MEDS ORDERED: ACETAMINOPHEN 325 MG TABLET PO PRN (16:47)
[2020-05-11] MEDS ORDERED: ONDANSETRON 4 MG TAB.RAPDIS PO PRN (16:50)
--- NOTE | 2020-05-11 17:00 | PDOC H&P ---
History of Present Illness Admission Date/PCP: 05/11/20 14:33 HAMLET LANG MD Patient complains of: Left arm weakness, left facial droop History of Present Illness: PLACIDO MENDIETA is a 64 year old female with history of hypertension, metabolic syndrome, seizure disorder and possible rhinitis. She states she was in her usual state of health until 2 days ago when she began to notice left arm weakness and left leg weakness. She did not perceive any abnormality of speech. She did not want to go to the hospital for fear of Covid infection. She is already on multiple antihypertensive medications, Metformin, Flonase and Geni. Blood work is unremarkable. CT scan of the head was negative. The left arm and left leg his symptoms are almost completely resolved. There is a very faint left facial droop. Today she is complaining of a headache and she is hungry. She will be admitted to the hospitalist service. We will obtain MRI of the brain, carotid Dopplers and an echocardiogram. I will have physical and occupational therapies see her. A statin and daily aspirin will be added to her regimen. We will try to maintain reasonable control of her blood pressure. Past Medical History Cardiac Medical History: Reports: Hypertension Denies: Atrial Fibrillation, Congestive Heart Failure, Coronary Artery D isease, Myocardial Infarction, Hyperlipidema, Peripheral Vascular Disease, Heart Murmur Pulmonary Medical History: Denies: Asthma, Bronchitis, Chronic Obstructive Pulmonary Disease (COPD) Neurological Medical History: Reports: Seizures - OVER 5YRS AGO GI Medical History: Denies: Crohn's Disease, Gastroesophageal Reflux Disease, Hiatal Hernia Musculoskeltal Medical History: Reports: Arthritis - HANDS Denies: Fibromyalgia Hematology: Denies: Anemia Past Surgical History Past Surgical History: Reports: Orthopedic Surgery - Left leg, Tonsillectomy, Tubal Ligation Denies: Amputation, Appendectomy, Section, Cholecystectomy, Colostomy, Coronary Artery Bypass Graft, Gastric Bypass Surgery, Herniorrhaphy, Hysterectomy, Mastectomy, Pacemaker Social History Lives with: Family Smoking Status: Never Smoker Electronic Cigarette use?: No Frequency of Alcohol Use: Occasional Hx Recreational Drug Use: No Hx Prescription Drug Abuse: No - Advance Directive Resuscitation Status: Do Not Resuscitate Surrogate healthcare decision maker:: The patient's would be the next designated decision maker. He was at the bedside during this encounter. Family History Family History: Hypertension, Malignancy Parental Family History Reviewed: Yes Children Family History Reviewed: Yes Sibling(s) Family History Reviewed.: Yes Medication/Allergy Home Medications: Amlodipine Besylate [Norvasc 5 mg Tablet] 5 mg PO DAILY 11/03/16 Meloxicam [Mobic 7.5 mg Tablet] 7.5 mg PO DAILY 11/03/16 Metoprolol Tartrate [Lopressor 50 mg Tablet] 50 mg PO BID 11/03/16 Ondansetron HCl [Zofran 4 mg Tablet] 4 mg PO Q8HP PRN 11/03/16 Benazepril HCl 40 mg PO DAILY 05/11/20 Fexofenadine HCl 180 mg PO DAILY 05/11/20 Fluticasone Propionate [Flonase Nasal [place] 50 Mcg/[place] 16 gm] 1 spray NASL DAILY 05/11/20 Gabapentin 300 mg PO QAM 05/11/20 Gabapentin 600 mg PO QPM 05/11/20 Levetiracetam [Keppra] 500 mg PO BID 05/11/20 Metformin HCl [Metformin HCl ER] 500 mg PO DAILY 05/11/20 Nitrofurantoin Monohyd/M-Cryst [Macrobid 100 mg Capsule] 100 mg PO [id number] 05/11/20 Trazodone HCl 25 mg PO QHS 05/11/20 Allergies/Adverse Reactions: Penicillins Allergy (Verified 05/11/20 14:32) prochlorperazine [From Compazine] Allergy (Verified 05/11/20 14:32) Review of Systems All systems: reviewed and no additional remarkable complaints except as stated Constitutional: PRESENT: headache(s) Gastrointestinal: PRESENT: nausea Neurological: PRESENT: weakness - Left arm and left leg, other - Left facial droop Physical Exam Vital Signs: Temp Pulse Resp BP Pulse Ox 98.4 F 51 L 16 182/93 H 97 05/11/20 12:03 05/11/20 12:03 05/11/20 14:02 05/11/20 14:02 05/11/20 14:23 Intake & Output 05/10/20 05/11/20 05/12/20 06:59 06:59 06:59 Weight 79 kg General appearance: PRESENT: cooperative, well-developed, well-nourished, other - Moderate distress Head exam: PRESENT: atraumatic, normocephalic Eye exam: PRESENT: conjunctiva pink, EOMI, PERRLA. ABSENT: nystagmus, scleral icterus Ear exam: PRESENT: normal external ear exam. ABSENT: bleeding, drainage Mouth exam: PRESENT: moist, tongue midline Neck exam: ABSENT: carotid bruit, JVD, lymphadenopathy, thyromegaly, tracheostomy Respiratory exam: PRESENT: clear to auscultation stephanie, symmetrical, unlabored. ABSENT: prolonged expiratory phas, rales, rhonchi, tachypnea, wheezes Cardiovascular exam: PRESENT: RRR, +S1, +S2, systolic murmur - Faint 2/6 systolic murmur. ABSENT: bradycardia, diastolic murmur, irregular rhythm, tachycardia Pulses: PRESENT: normal radial pulses, normal dorsalis pedis pul GI/Abdominal exam: PRESENT: normal bowel sounds, soft. ABSENT: distended, guarding, tenderness Rectal exam: PRESENT: deferred Gentrourinary exam: ABSENT: indwelling catheter Extremities exam: PRESENT: full ROM. ABSENT: clubbing, pedal edema Musculoskeletal exam: PRESENT: normal inspection. ABSENT: deformity, dislocation Neurological exam: PRESENT: alert, awake, oriented to person, oriented to place, oriented to time, oriented to situation, CN II-XII grossly intact, motor sensory deficit - Very subtle droop the left corner of her mouth. 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 ABSENT: altered Psychiatric exam: PRESENT: anxious, appropriate affect. ABSENT: agitated Focused psych exam: ABSENT: delusional, paranoid, restlessness Skin exam: PRESENT: dry, normal color, warm. ABSENT: rash Results Laboratory Results: 05/11/20 12:58 05/11/20 12:58 05/11/20 05/11/20 12:58 12:58 WBC 5.5 RBC 4.49 Hgb 13.6 Hct 40.8 MCV 91 MCH 30.3 MCHC 33.4 RDW 12.6 Plt Count 203 Seg Neutrophils % 48.5 Sodium 138.1 Potassium 4.6 Chloride 106 Carbon Dioxide 28 Anion Gap 4 L BUN 17 Creatinine 0.73 Est GFR ( Amer) > 60 Glucose 157 H Calcium 9.1 Total Bilirubin 0.5 AST 40 H Alkaline Phosphatase 74 Total Protein 7.2 Albumin 4.1 05/11/20 05/11/20 12:58 12:58 Creatine Kinase 72 CK-MB (CK-2) 0.30 Troponin I < 0.012 Impressions: Chest X-Ray 05/11/20 12:11 IMPRESSION: NO ACUTE RADIOGRAPHIC FINDING IN THE CHEST. Head CT 05/11/20 12:11 IMPRESSION: NORMAL BRAIN CT WITHOUT CONTRAST. EVIDENCE OF ACUTE STROKE: NO. Assessment and Plan - Diagnosis (1) Stroke due to embolism of right middle cerebral artery Is this a current diagnosis for this admission?: Yes (2) Left hemiparesis Is this a current diagnosis for this admission?: Yes (3) Facial droop due to acute cerebrovascular accident (CVA) Is this a current diagnosis for this admission?: Yes (4) Hypertension Qualifiers: Hypertension type: essential hypertension Qualified Code(s): I10 - Essential (primary) hypertension Is this a current diagnosis for this admission?: Yes (5) Seizure disorder Is this a current diagnosis for this admission?: Yes (6) Metabolic syndrome Is this a current diagnosis for this admission?: Yes (7) Headache Qualifiers: Headache type: unspecified Headache chronicity pattern: acute headache Intractability: not intractable Qualified Code(s): R51.9 - Headache, unspecified Is this a current diagnosis for this admission?: Yes - Plan Summary Summary: (1) Stroke due to embolism of right middle cerebral artery (2) Left hemiparesis (3) Facial droop due to acute cerebrovascular accident (CVA) (4) Hypertension (5) Seizure disorder (6) Metabolic syndrome (7) Headache 05/11/2020 Acute stroke right middle cerebral artery distribution-acute symptoms were left leg and left arm weakness and left facial droop. These have substantially resolved. The patient did not come to the emergency room on the day of the stroke but rather presents 2 days later which puts her out of the window for thrombolytic therapy. We will start aspirin and statin therapy. I have ordered physical and Occupational Therapy assessments as well. Carotid Doppler studies and echocardiogram have been ordered and should be complete by tomorrow. Hypertension-the patient is on metoprolol, amlodipine and benazepril. We will substitute lisinopril for benazepril. Will monitor closely on telemetry and with vital signs. Seizure disorder-this is a chronic issue. We will continue her Keppra. Metabolic syndrome-continue Metformin. The patient will be on a controlled carbohydrate and cardiac diet. Headache-it is not likely her blood pressure as it is not markedly elevated. It is more likely the fact that she has not had much to eat or drink and no IV fluids. A dose of Toradol will be given and as needed Toradol be available for analgesia. - Time Time Spent with patient: 35 or more minutes Medications reviewed and adjusted accordingly: Yes Anticipated Discharge Disposition: Home with Home Health Anticipated Discharge Timeframe: within 72 hours - Inpatient Certification Based on my medical assessment, after consideration of the patient's comorbi dities, presenting symptoms, or acuity I expect that the services needed warrant INPATIENT care.: Yes I certify that my determination is in accordance with my understanding of Medicare's requirements for reasonable and necessary INPATIENT services [42 CFR 412.3e].: Yes Medical Necessity: Need Close Monitoring Due to Risk of Patient Decompensation, Need For IV Fluids, Need For Continuous Telemetry Monitoring, Need for Neurological Checks, Need for Pain Control Post Hospital Care: D/C or Transfer Summary
[2020-05-11] MEDS: KETOROLAC TROMETHAMINE INJ/PF 30 MG/1 ML SDV IV PRN ×2 (17:21→23:34)
[2020-05-11] MEDS: METOPROLOL TARTRATE 50 MG TABLET PO SCH ×3 (17:21→17:48)
[2020-05-11] MEDS: GABAPENTIN 300 MG CAPSULE PO SCH (17:21)
[2020-05-11] MEDS: RINGERS SOLUTION,LACTATED 1,000 ML IV PRN (17:38)
[2020-05-11] MEDS ORDERED: LISINOPRIL 10 MG TABLET PO ONE (18:00)
[2020-05-11 19:08] LABS: APPEARANCE,URINE CLEAR; BILIRUBIN,URINE NEGATIVE (NEGATIVE); COLOR,URINE YELLOW; GLUCOSE, URINE NEGATIVE (NEGATIVE); KETONES,URINE NEGATIVE (NEGATIVE); LEUKOCYTE ESTERASE,URINE NEGATIVE (NEGATIVE); NITRITE,URINE NEGATIVE (NEGATIVE); PROTEIN,URINE NEGATIVE (NEGATIVE); UROBILINOGEN,URINE NEGATIVE mg/dL (<2.0)
--- NOTE | 2020-05-11 19:12 | RADIOLOGY REPORT (SQ) ---
EXAM DESCRIPTION: MRI HEAD WITHOUT IMAGES COMPLETED DATE/TIME: 05/11/2020 7:01 pm REASON FOR STUDY: left side weakness COMPARISON: None. TECHNIQUE: Multiplanar imaging includes non-contrasted T1, T2, FLAIR, and diffusion with ADC map seq uences. Images stored on PACS. LIMITATIONS: None. FINDINGS: ANATOMY: No anomalies. Normal vascular flow voids. Pituitary fossa normal. CSF SPACES: Normal in size and contour. No hemorrhage. CEREBRUM: Sulci and gyri normal in size and contour. Normal white matter signal on FLAIR imaging. No evidence of hemorrhage, mass, or extraaxial fluid collection. POSTERIOR FOSSA: No signal alteration. No hemorrhage. No edema, masses or mass effect. Internal telma tory canals, cerebello-pontine angles, mastoids normal. DIFFUSION IMAGING: There is an area of abnormally restricted diffusion on the right that extends from the periventricular region to the basal ganglia. ORBITS: No masses. Globes normal. PARANASAL SINUSES: No fluid levels. Mucosa normal. OTHER: No other significant finding. IMPRESSION: There is an acute lacunar infarction on the right as described. EVIDENCE OF ACUTE STROKE: Yes RIGHT MCA TECHNICAL DOCUMENTATION: JOB ID: [id number] 2010 [employer]- All Rights Reserved Reading location - IP/workstation name: [email or web address]
--- NOTE | 2020-05-11 20:06 | ADVANCED CARE ---
- Diagnosis (1) Stroke due to embolism of right middle cerebral artery Diagnosis Current: Yes (2) Left hemiparesis Diagnosis Current: Yes (3) Facial droop due to acute cerebrovascular accident (CVA) Diagnosis Current: Yes (4) Hypertension Diagnosis Current: Yes (5) Seizure disorder Diagnosis Current: Yes (6) Metabolic syndrome Diagnosis Current: Yes (7) Headache Diagnosis Current: Yes Attendance: Discussion was held at the bedside with the patient and her Resuscitation Status: Do Not Resuscitate Discussion: The patient is clear about her choice. 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 She is well aware of codes and resuscitative efforts. She does not want to experience this and understands that all of her conditions will receive the most aggressive treatment possible. DNR only comes into effect after a catastrophic event. Care Planning Goals: The patient is already DO NOT RESUSCITATE and is clear about her wishes. Consider a formal document that can be filed. Document(s) Completed: None at this time Time Spent: 20 minutes
[2020-05-11] MEDS: LEVETIRACETAM 500 MG TABLET PO SCH (21:20)
[2020-05-11] MEDS ORDERED: LORATADINE 10 MG TABLET PO SCH (22:00)
[2020-05-11] MEDS ORDERED: ASPIRIN 81 MG TABLET, ENT COATED PO SCH (22:00)
[2020-05-11] MEDS ORDERED: ATORVASTATIN CALCIUM 40 MG TABLET PO SCH (22:00)
[2020-05-11] MEDS ORDERED: TRAZODONE HCL 50 MG TABLET PO SCH (22:00)
[2020-05-12] MEDS: METOPROLOL TARTRATE 50 MG TABLET PO SCH (05:37)
[2020-05-12] MEDS: RINGERS SOLUTION,LACTATED 1,000 ML IV PRN (06:33)
[2020-05-12 07:17] LABS: ANION GAP 7 (5-19); BLOOD UREA NITROGEN 15 mg/dL (7-20); CALCIUM 9.1 mg/dL (8.4-10.2); CARBON DIOXIDE 27 mmol/L (22-30); CHLORIDE 106 mmol/L (98-107); CHOLESTEROL 237.83 mg/dL (0-200); GLUCOSE 132 mg/dL (75-110); TRIGLYCERIDES 311 mg/dL (<150)
[2020-05-12] MEDS ORDERED: KETOROLAC TROMETHAMINE INJ/PF 30 MG/1 ML SDV IV PRN (07:17)
[2020-05-12 07:29] LABS: DIRECT LDL 141 mg/dL (<100)
[2020-05-12 07:39] LABS: VLDL CHOLESTEROL 62.2 mg/dL (10-31)
[2020-05-12] MEDS ORDERED: GABAPENTIN 300 MG CAPSULE PO SCH (08:00)
[2020-05-12] MEDS ORDERED: METFORMIN HCL 500 MG TABLET PO SCH (08:00)
[2020-05-12] MEDS ORDERED: INSULIN REG, HUMAN 100 UNIT/ML 3 ML VIAL (PYX) SUBCUT SCH (08:00)
--- NOTE | 2020-05-12 08:33 | EKG REPORT ---
SEVERITY:- ABNORMAL ECG - SINUS BRADYCARDIA PROBABLE LEFT VENTRICULAR HYPERTROPHY : Confirmed by: Angela Strange MD 12-May-2020 08:32:42
[2020-05-12] MEDS ORDERED: KETOROLAC TROMETHAMINE INJ/PF 30 MG/1 ML SDV IV ONE (09:44)
[2020-05-12] MEDS ORDERED: (PENDING PHARMACY ID) (Metformin Hcl [Metformin Hcl Er] 500 MG Tab.Er.24h) PO SCH (10:00)
[2020-05-12] MEDS ORDERED: AMLODIPINE BESYLATE 10 MG TABLET PO SCH (10:00)
[2020-05-12] MEDS ORDERED: ENOXAPARIN SODIUM INJ 40 MG/0.4 ML DISP.SYRIN SUBCUT SCH (10:00)
[2020-05-12] MEDS ORDERED: AMLODIPINE BESYLATE 5 MG TABLET PO SCH (10:00)
[2020-05-12] MEDS ORDERED: LISINOPRIL 10 MG TABLET PO SCH (10:00)
[2020-05-12] MEDS ORDERED: FLUTICASONE NASAL SPRAY 50 MCG/SPRY 120 SPRAY/16 GM NASL SCH (10:00)
[2020-05-12] MEDS ORDERED: CLOPIDOGREL BISULFATE 75 MG TABLET PO SCH (10:00)
[2020-05-12] MEDS ORDERED: DIPHENHYDRAMINE HCL 50 MG/ML VIAL ONE (10:22)
[2020-05-12] MEDS ORDERED: METOCLOPRAMIDE HCL INJ/PF 10 MG/2 ML SDV ONE (10:23)
[2020-05-12] MEDS ORDERED: METOCLOPRAMIDE HCL INJ/PF 10 MG/2 ML SDV IV ONE (10:30)
[2020-05-12] MEDS: DIPHENHYDRAMINE HCL 50 MG/ML VIAL IV ONE ×2 (10:34→10:48)
[2020-05-12] MEDS: LEVETIRACETAM 500 MG TABLET PO SCH (10:52)
--- NOTE | 2020-05-12 14:03 | RADIOLOGY REPORT (SQ) ---
EXAM DESCRIPTION: CAROTID DOPPLER IMAGES COMPLETED DATE/TIME: 05/12/2020 12:44 pm REASON FOR STUDY: Stroke COMPARISON: None. TECHNIQUE: Grayscale ultrasound, Doppler velocity and spectra, and color Doppler images acquired of the extra-cranial carotid and vertebral arteries. Images stored on PACS. LIMITATIONS: None. FINDINGS: RIGHT CAROTID CCA Velocities: Within normal limits. ICA Velocities Peak systolic 0.56 m/s. End diastolic 0.16 m/s. Proximal ICA/CCA peak systolic ratio 1.5. Mild plaque bifurcation. LEFT CAROTID CCA Velocities: Within normal limits. ICA Velocities Peak systolic 0.80 m/s. End diastolic 0.30 m/s. Proximal ICA/CCA peak systolic ratio 1.6. Mild plaque proximal ICA. VERTEBRAL ARTERIES: Anterograde flow on the left. No flow visualized in the right vertebral artery. SUBCLAVIAN ARTERIES: Not imaged. OTHER: No other significant finding. IMPRESSION: 1. No significant stenosis in the ICAs. 2. Occluded right vertebral artery. COMMENT: Quality ID #[id number]: Velocity criteria are extrapolated from the diameter data as defined by t he Society of Radiologists in Ultrasound Consensus Conference. Radiology 2003: 229; 340-346. TECHNICAL DOCUMENTATION: JOB ID: [id number] 2010 [employer]- All Rights Reserved Reading location - IP/workstation name: [email or web address]
--- NOTE | 2020-05-12 17:01 | PDOC DISCHARGE SUMMARY ---
Impression - Admit/DC Date/PCP Admission Date/Primary Care Provider: 05/11/20 14:33 HAMLET LANG MD Discharge Date: 05/12/20 - Discharge Diagnosis (1) Stroke due to embolism of right middle cerebral artery Is this a current diagnosis for this admission?: Yes (2) Facial droop due to acute cerebrovascular accident (CVA) Is this a current diagnosis for this admission?: Yes (3) Headache Is this a current diagnosis for this admission?: Yes (4) Hypertension Is this a current diagnosis for this admission?: Yes (5) Left hemiparesis Is this a current diagnosis for this admission?: Yes (6) Sinus bradycardia Is this a current diagnosis for this admission?: Yes (7) HLD (hyperlipidemia) Is this a current diagnosis for this admission?: Yes - Additional Information Resuscitation Status: Do Not Resuscitate Discharge Diet: Cardiac Discharge Activity: Slowly Increase Activity Referrals: HAMLET LANG MD [Primary Care Provider] - Follow up as needed LUDA WATERS MD [NO LOCAL MD] - Prescriptions: Aspirin [Ecotrin 81 mg EC Tablet] 81 mg PO DAILY #30 tabec Atorvastatin Calcium [Lipitor 80 mg Tablet] 80 mg PO QHS #30 tablet Amlodipine Besylate [Norvasc 10 mg Tablet] 10 mg PO DAILY #30 tablet Clopidogrel Bisulfate [Plavix 75 mg Tablet] 75 mg PO DAILY #20 tablet Home Medications: Meloxicam [Mobic 7.5 mg Tablet] 7.5 mg PO DAILY 11/03/16 Ondansetron HCl [Zofran 4 mg Tablet] 4 mg PO Q8HP PRN 11/03/16 Benazepril HCl 40 mg PO DAILY 05/11/20 Fexofenadine HCl 180 mg PO DAILY 05/11/20 Fluticasone Propionate [Flonase Nasal [place] 50 Mcg/[place] 16 gm] 1 spray NASL DAILY 05/11/20 Gabapentin 300 mg PO QAM 05/11/20 Gabapentin 600 mg PO QPM 05/11/20 Levetiracetam [Keppra] 500 mg PO BID 05/11/20 Nitrofurantoin Monohyd/M-Cryst [Macrobid 100 mg Capsule] 100 mg PO [id number] 05/11/20 Trazodone HCl 25 mg PO QHS 05/11/20 Amlodipine Besylate [Norvasc 10 mg Tablet] 10 mg PO DAILY #30 tablet 05/12/20 Aspirin [Ecotrin 81 mg EC Tablet] 81 mg PO DAILY #30 tabec 05/12/20 Atorvastatin Calcium [Lipitor 80 mg Tablet] 80 mg PO QHS #30 tablet 05/12/20 Clopidogrel Bisulfate [Plavix 75 mg Tablet] 75 mg PO DAILY #20 tablet 05/12/20 History of Present Illiness History of Present Illness: According to admitting provider: PLACIDO MENDIETA is a 64 year old female with history of hypertension, metabolic syndrome, seizure disorder and possible rhinitis. She states she was in her usual state of health until 2 days ago when she began to notice left arm weakness and left leg weakness. She did not perceive any abnormality of speech. She did not want to go to the hospital for fear of Covid infection. She is already on multiple antihypertensive medications, Metformin, Flonase and Geni. Blood work is unremarkable. CT scan of the head was negative. The left arm and left leg his symptoms are almost completely resolved. There is a very faint left facial droop. Today she is complaining of a headache and she is hungry. She will be admitted to the hospitalist service. We will obtain MRI of the brain, carotid Dopplers and an echocardiogram. I will have physical and occupational therapies see her. A statin and daily aspirin will be added to her regimen. We will try to maintain reasonable control of her blood pressure. Hospital Course Hospital Course: 05/11/2020 Acute stroke right middle cerebral artery distribution-acute symptoms were left leg and left arm weakness and left facial droop. These have substantially resolved. The patient did not come to the emergency room on the day of the stroke but rather presents 2 days later which puts her out of the window for thrombolytic therapy. We will start aspirin and statin therapy. I have ordered physical and Occupational Therapy assessments as well. Carotid Doppler studies and echocardiogram have been ordered and should be complete by tomorrow. Hypertension-the patient is on metoprolol, amlodipine and benazepril. We will substitute lisinopril for benazepril. Will monitor closely on telemetry and with vital signs. Seizure disorder-this is a chronic issue. We will continue her Keppra. Metabolic syndrome-continue Metformin. The patient will be on a controlled carbohydrate and cardiac diet. Headache-it is not likely her blood pressure as it is not markedly elevated. It is more likely the fact that she has not had much to eat or drink and no IV fluids. A dose of Toradol will be given and as needed Toradol be available for analgesia. 05/12/2020 Patient feeling well today. Notably she is in sinus bradycardia at this morning in the 40s. She had been in the 40s for the most part of her stay. No evidence of AV block. She was asymptomatic. I discontinued her Lopressor. She states she takes Lopressor for hypertension only and has no history of atrial fibrillation or atrial flutter. No atrial arrhythmias noted on telemetry. As such I will increase her amlodipine dose from 5 to 10 mg daily. She is to continue her benazepril at home. She did receive a headache cocktail for headache this morning. She has pretty good strength with mild weakness on the left side. 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 The occluded right vertebral artery is incidental finding and does not correlate with the region of a stroke which was in her right MCA distribution. As such no intervention is needed. Medical management with antiplatelet and statin. I did explain to her that her vertebral artery occlusion could cause intermittent episodes of dizziness. I recommended her to follow-up with a neurologist and have given her contact information for [facility] neurology. She has been started on aspirin lifelong, Plavix for 21 days and high-dose atorvastatin. Patient would like to go home today and she is being discharged in stable conditions. Physical Exam Vital Signs: Temp Pulse Resp BP Pulse Ox 97.8 F 84 18 133/84 H 94 05/12/20 13:06 05/12/20 14:00 05/12/20 13:06 05/12/20 13:06 05/12/20 13:06 Intake & Output 05/11/20 05/12/20 05/13/20 06:59 06:59 06:59 Intake Total 1000 260 Output Total 650 Balance 350 260 Weight 72.2 kg 72.2 kg General appearance: PRESENT: no acute distress, cooperative Neck exam: ABSENT: JVD Respiratory exam: PRESENT: symmetrical, unlabored. ABSENT: tachypnea, wheezes Cardiovascular exam: PRESENT: bradycardia, +S1, +S2. ABSENT: tachycardia GI/Abdominal exam: PRESENT: soft. ABSENT: rebound, rigid, tenderness Neurological exam: PRESENT: alert, awake, oriented to person, oriented to place, oriented to time, oriented to situation, CN II-XII grossly intact, motor sensory deficit - Very mild weakness in her left arm compared to her right. ABSENT: abnormal gait, ataxia, aphasic Results Laboratory Results: WBC 5.5 10^3/uL (4.0-10.5) 05/11/20 12:58 RBC 4.49 10^6/uL (3.72-5.28) 05/11/20 12:58 Hgb 13.6 g/dL (12.0-15.5) 05/11/20 12:58 Hct 40.8 % (36.0-47.0) 05/11/20 12:58 MCV 91 fl (80-97) 05/11/20 12:58 MCH 30.3 pg (27.0-33.4) 05/11/20 12:58 MCHC 33.4 g/dL (32.0-36.0) 05/11/20 12:58 RDW 12.6 % (11.5-14.0) 05/11/20 12:58 Plt Count 203 10^3/uL (150-450) 05/11/20 12:58 Lymph % (Auto) 39.7 % (13-45) 05/11/20 12:58 Mineral % (Auto) 8.8 % (3-13) 05/11/20 12:58 Eos % (Auto) 2.1 % (0-6) 05/11/20 12:58 Baso % (Auto) 0.9 % (0-2) 05/11/20 12:58 Absolute Neuts (auto) 2.7 10^3/uL (1.7-8.2) 05/11/20 12:58 Absolute Lymphs (auto) 2.2 10^3/uL (0.5-4.7) 05/11/20 12:58 Absolute Monos (auto) 0.5 10^3/uL (0.1-1.4) 05/11/20 12:58 Absolute Eos (auto) 0.1 10^3/uL (0.0-0.6) 05/11/20 12:58 Absolute Basos (auto) 0.1 10^3/uL (0.0-0.2) 05/11/20 12:58 Seg Neutrophils % 48.5 % (42-78) 05/11/20 12:58 PT 12.7 SEC (11.4-15.4) 05/11/20 12:58 INR 0.93 05/11/20 12:58 APTT 30.4 SEC (23.5-35.8) 05/11/20 12:58 Sodium 140.3 mmol/L (137-145) 05/12/20 06:42 Potassium 4.0 mmol/L (3.6-5.0) 05/12/20 06:42 Chloride 106 mmol/L (98-107) 05/12/20 06:42 Carbon Dioxide 27 mmol/L (22-30) 05/12/20 06:42 Anion Gap 7 (5-19) 05/12/20 06:42 BUN 15 mg/dL (7-20) 05/12/20 06:42 Creatinine 0.62 mg/dL (0.52-1.25) 05/12/20 06:42 Est GFR ( Amer) > 60 (>60) 05/12/20 06:42 Est GFR (MDRD) Non-Af > 60 (>60) 05/12/20 06:42 Glucose 132 mg/dL (75-110) H 05/12/20 06:42 POC Glucose 136 mg/dL (70-110) H 05/12/20 07:37 Hemoglobin A1c % 5.6 % (4.7-6.0) 05/12/20 06:42 Calcium 9.1 mg/dL (8.4-10.2) 05/12/20 06:42 Total Bilirubin 0.5 mg/dL (0.2-1.3) 05/11/20 12:58 Direct Bilirubin 0.3 mg/dL (0.0-0.4) 05/11/20 12:58 Neonat Total Bilirubin Not Reportable 05/11/20 12:58 Neonat Direct Bilirubin Not Reportable 05/11/20 12:58 Neonat Indirect Bili Not Reportable 05/11/20 12:58 AST 40 U/L (14-36) H 05/11/20 12:58 ALT 43 U/L (<35) H 05/11/20 12:58 Alkaline Phosphatase 74 U/L (38-126) 05/11/20 12:58 Creatine Kinase 72 U/L (30-135) 05/11/20 12:58 CK-MB (CK-2) 0.30 ng/mL (<4.55) 05/11/20 12:58 Troponin I < 0.012 ng/mL 05/11/20 12:58 Total Protein 7.2 g/dL (6.3-8.2) 05/11/20 12:58 Albumin 4.1 g/dL (3.5-5.0) 05/11/20 12:58 Triglycerides 311 mg/dL (<150) H 05/12/20 06:42 Cholesterol 237.83 mg/dL (0-200) H 05/12/20 06:42 LDL Cholesterol Direct 141 mg/dL (<100) H 05/12/20 06:42 VLDL Cholesterol 62.2 mg/dL (10-31) H 05/12/20 06:42 HDL Cholesterol 46 mg/dL (>40) 05/12/20 06:42 Urine Color YELLOW 05/11/20 16:40 Urine Appearance CLEAR 05/11/20 16:40 Urine pH 6.0 (5.0-9.0) 05/11/20 16:40 Ur Specific [place] 1.020 05/11/20 16:40 Urine Protein NEGATIVE mg/dL (NEGATIVE) 05/11/20 16:40 Urine Glucose (UA) NEGATIVE mg/dL (NEGATIVE) 05/11/20 16:40 Urine Ketones NEGATIVE mg/dL (NEGATIVE) 05/11/20 16:40 Urine Blood NEGATIVE (NEGATIVE) 05/11/20 16:40 Urine Nitrite NEGATIVE (NEGATIVE) 05/11/20 16:40 Urine Bilirubin NEGATIVE (NEGATIVE) 05/11/20 16:40 Urine Urobilinogen NEGATIVE mg/dL (<2.0) 05/11/20 16:40 Ur Leukocyte Esterase NEGATIVE (NEGATIVE) 05/11/20 16:40 Urine WBC (Auto) 0 /HPF 05/11/20 16:40 Urine RBC (Auto) 2 /HPF 05/11/20 16:40 Urine Bacteria (Auto) TRACE /HPF 05/11/20 16:40 Squamous Epi Cells Auto 2 /HPF 05/11/20 16:40 Urine Mucus (Auto) RARE /LPF 05/11/20 16:40 Urine Ascorbic Acid NEGATIVE (NEGATIVE) 05/11/20 16:40 05/11/20 12:58 CK-MB (CK-2) 0.30 Troponin I < 0.012 Impressions: Chest X-Ray 05/11/20 12:11 IMPRESSION: NO ACUTE RADIOGRAPHIC FINDING IN THE CHEST. Head CT 05/11/20 12:11 IMPRESSION: NORMAL BRAIN CT WITHOUT CONTRAST. EVIDENCE OF ACUTE STROKE: NO. Head MRI 05/11/20 14:13 IMPRESSION: There is an acute lacunar infarction on the right as described. EVIDENCE OF ACUTE STROKE: Yes RIGHT MCA Carotid Doppler Study 05/12/20 00:00 IMPRESSION: 1. No significant stenosis in the ICAs. 2. Occluded right vertebral artery. Plan Time Spent: Greater than 30 Minutes Stroke Is this a Stroke Patient?: Yes Stroke Pt being discharged on Anti-thrombolytic therapy?: Yes Stroke Pt being discharged on Anti-coagulation therapy?: No Reason(s) for not prescribing Anti-coagulation therapy:: Not indicated Stroke Pt being discharged on Statins?: Yes Acute Heart Failure Is this a Heart Failure Patient?: No
[2020-05-12] MEDS: GABAPENTIN 300 MG CAPSULE PO SCH (17:12)
[2020-05-12 17:20] VITALS: BP 151/79
--- NOTE | 2020-05-12 17:27 | XCELERA REPORT ---
[address] [address] Transthoracic Echocardiogram Report Name: PLACIDO MENDIETA Age: 64 yrs Gender: Female : 1955 Patient Status: Inpatient Patient Location: [address] [place] [address] Study Date: 05/12/2020 09:52 AM Height: 62 in Weight: 174 lb BSA: 1.8 m2 Procedure: A two-dimensional transthoracic echocardiogram with color flow and Doppler was performed. Study Quality: Fair. Reason For Study: stroke work-up History: CVA. Ordering Physician: KELLY FORTE Performed By: Bri Cash Interpretation Summary The left ventricle is normal in size. There is normal left ventricular wall thickness. LV EF is 60% Doppler measurements suggest impaired left ventricular relaxation, which is associated with grade I/IV or mild diastolic dysfunction The left ventricular wall motion is normal. There is no thrombus. No ASD,VSD,or PFO seen. The right ventricle is normal in size and function. The right atrium is normal. The left atrial size is normal. There is no evidence of mitral valve prolapse. There is no vegetation seen on the mitral valve. There is no mitral valve stenosis. There is a mild amount of mitral regurgitation There is no aortic valvular vegetation. There is no aortic valve stenosis There is a trace amount of aortic regurgitation There is no tricuspid stenosis. There is a mild amount of tricuspid regurgitation There is mild pulmonary hypertension by echo The RVSP is 36 to 39 mm of Hg with RA mean of 5 to 10. There is no pulmonic valvular stenosis. There is no pulmonic valvular regurgitation. The aortic root is normal size. The inferior vena cava appeared normal and decreased > 50% with respiration (RAP 5-10 mmHg) No pericardial effusion. MMode/2D Measurements & Calculations RVDd: 3.5 cm LVIDd: 5.2 cm FS: 31.7 % Ao root diam: 2.9 cm IVSd: 1.1 cm LVIDs: 3.5 cm EDV(Teich): 127.9 ml Ao root area: 6.8 cm2 LVPWd: 1.0 cm ESV(Teich): 52.0 ml LA dimension: 4.2 cm EF(Teich): 59.3 % Doppler Measurements & Calculations MV E max reggie: MV P1/2t max reggie: Ao V2 max: LV V1 max P.3 cm/sec 99.9 cm/sec 192.4 cm/sec 7.3 mmHg MV A max reggie: MV P1/2t: 83.9 msec Ao max PG: LV V1 max: 103.3 cm/sec MVA(P1/2t): 2.6 cm2 14.8 mmHg 135.5 cm/sec MV E/A: 0.95 MV dec slope: 348.8 cm/sec2 MV dec time: 0.27 sec PA V2 max: PI end-d reggie: TR max reggie: MV P1/2t-pr_phl: 105.6 cm/sec 171.6 cm/sec 278.0 cm/sec 83.9 msec PA max P.5 mmHg TR max P.9 mmHg Left Ventricle The left ventricle is normal in size. There is normal left ventricular wall thickness. LV EF is 60%. Left ventricular systolic function is normal. Doppler measurements suggest impaired left ventricular relaxation, which is associated with grade I/IV or mild diastolic dysfunction. The left ventricular wall motion is normal. There is no thrombus. No ASD,VSD,or PFO seen. Right Ventricle The right ventricle is normal in size and function. Atria The right atrium is normal. The left atrial size is normal. Mitral Valve There is no evidence of mitral valve prolapse. There is no vegetation seen on the mitral valve. There is no mitral valve stenosis. There is a mild amount of mitral regurgitation. Aortic Valve There is no aortic valvular vegetation. There is no aortic valve stenosis. There is a trace amount of aortic regurgitation. Tricuspid Valve There is no tricuspid stenosis. There is a mild amount of tricuspid regurgitation. There is mild pulmonary hypertension by echo. The RVSP is 36 to 39 mm of Hg with RA mean of 5 to 10. Pulmonic Valve There is no pulmonic valvular stenosis. There is no pulmonic valvular regurgitation. Great Vessels The aortic root is normal size. The inferior vena cava appeared normal and decreased > 50% with respiration (RAP 5-10 mmHg). Effusions No pericardial effusion. : KELLY FORTE Lakshmi
== END 2020-05-12 18:30 | disposition home or self-care (01) | DRG 68 ==
LOC: ER 11:50 → EH 14:33 → 5TH 17:12
PROVIDERS: ADMIT Hospitalist; ATTEND Internal Medicine
DX: I66.01 Occlusion and stenosis of right middle cerebral artery (principal); G81.94 Hemiplegia, unspecified affecting left nondominant side; E88.81 Metabolic syndrome and other insulin resistance; R29.810 Facial weakness; R51.9 Headache, unspecified; I10 Essential (primary) hypertension; R00.1 Bradycardia, unspecified; E78.5 Hyperlipidemia, unspecified; Z66 Do not resuscitate; G40.909 Epilepsy, unspecified, not intractable, without status epilepticus; J31.0 Chronic rhinitis; M19.042 Primary osteoarthritis, left hand; M19.041 Primary osteoarthritis, right hand; R29.701 NIHSS score 1; Z79.82 Long term (current) use of aspirin; Z79.899 Other long term (current) drug therapy; Z79.02 Long term (current) use of antithrombotics/antiplatelets; Z79.84 Long term (current) use of oral hypoglycemic drugs; Z82.49 Family history of ischemic heart disease and other diseases of the circulatory system; Z88.0 Allergy status to penicillin; Z91.09 Other allergy status, other than to drugs and biological substances
CPT/HCPCS: 36415; 70450; 70551; 71045; 80048; 80053; 80061; 81001; 82550; 82553; 82962; 83036; 84484; 85025; 85610; 85730; 93005; 93010; 93306; 93880; 99285; J1200; J1650; J1885; J2765; J3490; S0119